=== PATIENT | female | born 1975 ===

== ENCOUNTER 2017-06-21 15:16 | Emergency (ER) | payer OTHER ==
[2017-06-21 15:24] VITALS: BP 145/81; PULSE 99; RESP 18; TEMP 98.4; O2SAT 99
--- NOTE | 2017-06-21 15:30 | ED PDOC ---
HPI: Eye Injury/Pain Time Seen by Provider: 06/21/17 15:25 Chief Complaint (Nursing): Eye Problem Chief Complaint (Provider): Right eye redness History Per: Patient History/Exam Limitations: no limitations Onset/Duration Of Symptoms: Days (x2) Current Symptoms Are (Timing): Still Present Injury To Eye?: No Wears Contact Lens?: No Additional Complaint(s): 42-year-old female presents to the Emergency Department complaining of right eye redness that she first notices as of 2 days ago upon waking up. She denies any eye pain, discharge, visual changes, headache, cough, or congestion. Patient states she had similar symptoms in May, saw her eye doctor and was prescribed eye drops with resolution of symptoms in 4 days. She reports this time symptoms seem worsened and are not improving with the same eye drops she used last time. Patient started the drops yesterday. PMD: Dr. Wilson Decker Past Medical History Reviewed: Historical Data, Nursing Documentation, Vital Signs Vital Signs: Last Vital Signs Temp 98.4 F 06/21/17 15:19 Pulse 99 H 06/21/17 15:19 Resp 18 06/21/17 15:19 BP 145/81 06/21/17 15:19 Pulse Ox 99 06/21/17 15:19 - Medical History PMH: HTN - Surgical History Surgical History: (x2) Other surgeries: Abdominoplasty - Family History Family History: States: No Known Family Hx - Living Arrangements Living Arrangements: With Family - Social History Current smoker - smoking cessation education provided: Yes Alcohol: Social Drugs: Denies - Allergies Allergies/Adverse Reactions: Allergies Allergy/AdvReac Type Severity Reaction Status Date / Time No Known Allergies Allergy Verified 06/21/17 15:19 Review of Systems ROS Statement: Except As Marked, All Systems Reviewed And Found Negative Eyes: Positive for: Redness (to right eye). Negative for: Pain, Vision Change, Eyelid Inflammation ENT: Negative for: Nose Congestion Respiratory: Negative for: Cough Neurological: Negative for: Headache, Dizziness Physical Exam - Reviewed Nursing Documentation Reviewed: Yes Vital Signs Reviewed: Yes - Physical Exam Appears: Positive for: Non-toxic, No Acute Distress Head Exam: Positive for: ATRAUMATIC, NORMAL INSPECTION, NORMOCEPHALIC Skin: Positive for: Normal Color. Negative for: Rash Eye Exam: Positive for: EOMI, PERRL, Other (Subconjunctival hemorrhage to right eye, no FB). Negative for: Nystagmus, Periorbital swelling, Periorbital tenderness Neurologic/Psych: Positive for: Alert, pattern worker II-XII (grossly intact), Oriented. Negative for: Motor/Sensory Deficits, Aphasia, Facial Droop - ECG O2 Sat by Pulse Oximetry: 99 (RA) Pulse Ox Interpretation: Normal Medical Decision Making Medical Decision Making: Impression: 42 y/o with subconjunctival hemorrhage to right eye Patient has h/o subconjunctival hemorrhage and presents to ED with same today. She denies any known trauma. Advised patient that no acute intervention is indicated at this time. Patient made aware that condition is self resolving. She has follow up with her eye doctor early next week. Scribe Attestation: Documented by Svetlana Desouza, acting as a scribe for Mervat Loredo PA-C Provider Scribe Attestation: All medical record entries made by the Scribe were at my direction and personally dictated by me. I have reviewed the chart and agree that the record accurately reflects my personal performance of the history, physical exam, medical decision making, and the department course for this patient. I have also personally directed, reviewed, and agree with the discharge instructions and disposition. Disposition - Clinical Impression Clinical Impression: Subconjunctival hemorrhage - Patient ED Disposition Is Patient to be Admitted: No Counseled Patient/Family Regarding: Diagnosis, Need For Followup - Disposition Referrals: Héctor Goldman MD [Staff Provider] - Disposition: Routine/Home Disposition Time: 15:56 Condition: STABLE Additional Instructions: Follow up with eye doctor in 2-3 days. Continue with current drops. Instructions: Subconjunctival Hemorrhage Forms: [employer] ([place]o)
== END 2017-06-21 16:06 | disposition home or self-care (01) ==
LOC: H.ER 15:16
DX: H11.31 Conjunctival hemorrhage, right eye (principal); I10 Essential (primary) hypertension